=== PATIENT | male | born 1950 | race Hispanic/Latino ===

== ENCOUNTER 2017-04-18 12:40 | Outpatient (CLI) | payer BC | END 2017-04-18 12:41 | disposition home or self-care (01) | LOC: BICRAD 12:40 | PROVIDERS: ATTEND Internal Medicine Rheumatology | DX: M25.561 Pain in right knee (principal); M25.752 Osteophyte, left hip; M16.11 Unilateral primary osteoarthritis, right hip; M79.89 Other specified soft tissue disorders; M25.761 Osteophyte, right knee ==

== ENCOUNTER 2017-10-13 04:31 | Emergency (ER) | payer BC ==
[2017-10-13 07:08] LABS: #Basophils 0.1 thou/uL (0.0-0.2); #Eosinphils 0.4 thou/uL (0.0-0.7); #Lymphocytes 3.9 thou/uL (1.20-3.40); #Monocytes 1.1 thou/uL (0.11-0.59); #Neutrophils 4.3 thou/uL (1.40-6.50); %Basophils 1.1 % (0.0-1.0); %Eosinophils 3.9 % (0.0-10.0); %Lymphocytes 39.8 % (21.0-51.0); %Neutrophils 44.2 % (42.0-75.0); Hemoglobin 15.8 g/dL (14.0-18.0); Mean Corpuscular HGB CONC 34.2 g/dL (32.0-36.0); Mean Corpuscular Hemoglobin 33.8 pg (27.0-31.0); Mean Corpuscular Volume 98.9 fL (78.0-98.0); Mean Platelet Volume 8.4 fL (7.4-10.4); Platelet Count 170 thou/uL (130-400); RBC Distribution Width 12.7 % (11.5-14.5); Red Blood Cell (RBC) Count 4.67 mill/uL (4.70-6.10); White Blood Cell (WBC) Count 9.7 thou/uL (4.8-10.8)
[2017-10-13 07:29] LABS: ALT (SGPT) 20 U/L (8-55); AST (SGOT) 28 U/L (5-34); Albumin 4.6 g/dL (3.4-4.8); Alkaline Phosphatase 110 U/L (40-150); Anion Gap 13 mmol/L (10-20); BUN (Urea Nitrogen) 19 mg/dL (8.4-25.7); Bilirubin, Total 0.3 mg/dL (0.2-1.2); Calc. Creatinine Clearance 0 mL/min (70-130); Calcium 9.4 mg/dL (7.8-10.44); Carbon Dioxide 23 mmol/L (23-31); Chloride 108 mmol/L (98-107); Estimated GFR-MDRD Greater than 90; Glucose 111 mg/dL (80-115); Potassium 4.4 mmol/L (3.5-5.1); Protein, Total 7.6 g/dL (5.8-8.1); Sodium 140 mmol/L (136-145)
[2017-10-13 07:33] LABS: Troponin I Less than 0.010 ng/mL (< 0.028)
--- NOTE | 2017-10-13 08:59 | RAD ---
2 VIEWS CHEST: Date: 10/13/17 PROVIDED CLINICAL HISTORY: Dyspnea. FINDINGS: Cardiac and mediastinal silhouette is within normal limits. Lungs appear clear. No pleural fluid or p neumothorax apparent. IMPRESSION: No evidence for an acute cardiopulmonary process. POS: BRODYH
== END 2017-10-13 09:02 | disposition home or self-care (01) ==
LOC: ERS 04:31
DX: R00.2 Palpitations (principal); F41.9 Anxiety disorder, unspecified; F17.210 Nicotine dependence, cigarettes, uncomplicated; Z79.899 Other long term (current) drug therapy
CPT/HCPCS: 36415; 71046; 80053; 84484; 85025; 93005

== ENCOUNTER 2018-03-07 10:11 | Outpatient (CLI) | payer BC ==
--- NOTE | 2018-03-07 12:06 | RAD ---
TWO VIEWS OF THE LEFT HIP: DATE: 03/07/2018. COMPARISON: None. HISTORY: Left-sided hip pain. FINDINGS: Mild superior joint space narrowing. There is subchondral sclerosis and lateral osteophyte formation involving the acetabular roof. There is no displaced fracture or dislocation seen. There is degenerative change noted involving the lower lumbar spine. IMPRESSION: Mild/moderate left hip degenerative joint disease. No acute osseous abnormality. POS: C
--- NOTE | 2018-03-07 12:12 | RAD ---
LEFT SHOULDER THREE VIEWS: 03/07/2018 HISTORY: Left shoulder pain. COMPARISON: None. FINDINGS: There is degenerative change of the acromioclavicular joint with joint space narrowing, as well as navarro perior and inferior osteophyte formation. No widening of the coracoclavicular interspace. No displa chante fracture or dislocation seen. IMPRESSION: 1. No acute osseous abnormality. 2. Degenerative change of the left acromioclavicular joint. POS: C
--- NOTE | 2018-03-07 12:13 | RAD ---
LEFT FOOT 3 VIEWS: HISTORY: Pain. COMPARISON: None. FINDINGS: Lisfranc alignment is maintained. Joint spaces are preserved. There is no fracture. There is mid f oot soft tissue swelling. There is hypertrophy of the calcaneus at the Achilles tendon insertion sit e. There is also evidence of spurring at the plantar aponeurosis insertion. IMPRESSION: 1. No fracture. 2. Hypertrophic changes of the calcaneus as above. POS: AVELINO
== END 2018-03-07 10:12 | disposition home or self-care (01) ==
LOC: BICRAD 10:11
PROVIDERS: ATTEND Family Medicine
DX: M79.672 Pain in left foot (principal); M25.552 Pain in left hip; M25.512 Pain in left shoulder; M19.012 Primary osteoarthritis, left shoulder; M16.12 Unilateral primary osteoarthritis, left hip